=== PATIENT | male | born 1985 | race Native Hawaiian/Other Pacific Islander ===

== ENCOUNTER 2020-08-15 15:54 | Outpatient (REF) | payer OTHER, SELFPAY | END 2020-08-15 15:55 | disposition home or self-care (01) | LOC: HO.LAB 15:54 | PROVIDERS: Visit Provider Internal Medicine | DX: Z20.822 Contact with and (suspected) exposure to COVID-19 (principal) | CPT/HCPCS: 36415; C9803; U0003; U0005 ==

== ENCOUNTER 2023-10-29 08:32 | Outpatient (AMB) | payer OTHER, SELFPAY ==
--- NOTE | 2023-10-29 09:25 | MHC.OFFWIV ---
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 Patient Tobacco Use Status: Never used Tobacco Allergies No Known Allergies Allergy (Verified 10/29/23 09:31) Do you need a note to return to daycare/school/sports/work: Yes HPI HPI Comments History of Present Illness Details 38 year old male c/o right thigh pain x 3days. Admits to associated itchiness, pain when his kids rub up against him, redness and warmth. Denies fevers. Able to ambulate as normal. Is unaware of cut, abrasion or injury to the area. Does admit to MRSA infection wtih an abscess about 15 years ago. [facility] Social History (System 09/06/22 @ 10:27 by Krish Mccormack) Patient Tobacco Use Status: Never used Tobacco Review of Systems Const All systems reviewed & are unremarkable except as noted in HPI and below Physical Exam Vital Signs: Last Vital Signs Temp 98.1 F 10/29/23 09:26 Pulse 63 10/29/23 09:26 BP 142/74 H 10/29/23 09:26 Pulse Ox 100 10/29/23 09:26 Oxygen Delivery Method Room Air 10/29/23 09:26 BMI result Body Mass Index 36.6 Const General: cooperative, healthy appearing, comfortable and no acute distress Nutritional Appearance: average body habitus Orientation/consciousness: patient oriented x3 Limitations: no limitations Resp Effort & Inspection: normal respiratory effort and able to speak in complete sentences Skin Other: Anterior distal right thigh has large area of erythema, warmth, no lesions noted, no ecchymosis. blanchable and flat. Neuro General: patient oriented x3 Assessment & Plan Assessment & Plan (1) Cellulitis of right thigh: Code(s): L03.115 - Cellulitis of right lower limb Plan: Cefuroxime x 7 days called into [facility], if no improvement can switch to [facility] for MRSA coverage but unlikely with presentation. Plan see above Medications: New cefuroxime axetil 500 mg PO Q12H 14 tabs 0RF L03.115 - Cellulitis of right lower limb Coding Level of Care Code New Pt Level 2 (04216) Diagnoses Cellulitis of right thigh L03.115
[2023-10-29 09:26] VITALS: BP 142/74; PULSE 63; TEMP 36.7; O2SAT 100; BMI 36.6
== END 2023-10-29 09:50 | disposition home or self-care (01) ==
PROVIDERS: Visit Provider Physician Assistant
DX: L03.115 Cellulitis of right lower limb (principal)
CPT/HCPCS: 99203